=== PATIENT | male | born 1980 | race Caucasian/White ===

== ENCOUNTER 2016-09-05 12:25 | Emergency (ER) | payer SELFPAY ==
[2016-09-05 14:19] LABS: Basophils % (Auto) 0.5 % (0.0-1.8); Eosinophils % (Auto) 1.9 % (0.0-4.3); Hematocrit 46.5 % (35.5-45.6); Hemoglobin 15.8 gm/dl (11.8-15.2); Mean Corpuscular HGB Conc 34 % (32-34); Mean Corpuscular Hemoglobin 28 pg (28-32); Mean Corpuscular Volume 83 fl (84-94); Platelet Count 284 K/mm3 (140-440); Red Blood Count 5.58 M/mm3 (3.65-5.03); Red Cell Distribution Width 13.2 % (13.2-15.2); White Blood Count 9.8 K/mm3 (4.5-11.0)
[2016-09-05 14:40] LABS: Alanine Aminotransferase 24 units/L (7-56); Albumin 4.4 g/dL (3.9-5); Albumin/Globulin Ratio 1.6 %; Alkaline Phosphatase 75 units/L (35-129); Anion Gap 19 mmol/L; Blood Urea Nitrogen 12 mg/dL (9-20); Calcium 9.1 mg/dL (8.4-10.2); Carbon Dioxide 25 mmol/L (22-30); Chloride 99.8 mmol/L (98-107); Glucose 98 mg/dL (75-100); Potassium 3.4 mmol/L (3.6-5.0); Sodium 140 mmol/L (137-145); Total Protein 7.2 g/dL (6.3-8.2); Uric Acid 8.6 mg/dL (3.5-7.6)
[2016-09-05 17:18] VITALS: BP 134/88
[2016-09-05] MEDS ORDERED: TORADOL ONE (19:10)
[2016-09-05] MEDS ORDERED: DELTASONE ONE (19:10)
[2016-09-05] MEDS ORDERED: DELTASONE PO ONE (19:12)
[2016-09-05] MEDS ORDERED: TORADOL IM ONE (19:12)
--- NOTE | 2016-09-05 19:14 | Emergency Department Report ---
ED Upper Extremity Inj HPI - General Chief Complaint: Extremity Injury, Upper Stated Complaint: RT SIDE PAIN/NUMBNESS Time Seen by Provider: 09/05/16 19:12 Source: patient Mode of arrival: Ambulatory Limitations: No Limitations - History of Present Illness Initial Comments: Patient presents with 2 weeks of worsening right hand and arm pain. Complains of tingling and weakness today. 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 No other focal neurological complaints MD Complaint: Injury to:: right, wrist, hand -: Gradual Other Extremity Injury: Hand: Right - Related Data Previous Rx's Medication Instructions Recorded Last Taken Type Ibuprofen [Motrin 600 MG tab] 600 mg PO Q8H PRN #30 tablet 09/05/16 Unknown Rx predniSONE [Deltasone] 40 mg PO QDAY #6 tab 09/05/16 Unknown Rx Allergies Allergy/AdvReac Type Severity Reaction Status Date / Time No Known Allergies Allergy Verified 09/05/16 19:13 ED Review of Systems ROS: Stated complaint: RT SIDE PAIN/NUMBNESS Other details as noted in HPI ED Past Medical Hx - Medications Home Medications: Home Medications Medication Instructions Recorded Confirmed Last Taken Type Ibuprofen [Motrin 600 MG tab] 600 mg PO Q8H PRN #30 tablet 09/05/16 Unknown Rx predniSONE [Deltasone] 40 mg PO QDAY #6 tab 09/05/16 Unknown Rx ED Physical Exam - General Limitations: No Limitations ED Course Vital Signs 09/05/16 09/05/16 13:53 17:17 Temperature 98.6 F 98.5 F Pulse Rate 90 83 Respiratory 16 18 Rate Blood Pressure 134/95 Blood Pressure 134/88 [Left] O2 Sat by Pulse 100 99 Oximetry ED Medical Decision Making - Lab Data Result diagrams: 09/05/16 14:07 09/05/16 14:07 - Medical Decision Making Patient is a 36-year-old male medical problems here with right arm pain and swelling. He has been using vibrating mechanical falls for the past several years and now has pain with movement of his right wrist and elbow. Ultrasound of his wrist with negative labs are unremarkable. My suspicion is that this is carpal tunnel syndrome or a likely overuse injury. Plan to treat with NSAIDs and steroids and rest. Normal neurological exam. Portions of this chart were dictated with dictation software. There may be dictation errors contained within this note. Critical care attestation.: If time is entered above; I have spent that time in minutes in the direct care of this critically ill patient, excluding procedure time. ED Disposition Clinical Impression: Carpal tunnel syndrome of right wrist, Arm pain Disposition: TO HOME OR SELFCARE Is pt being admited?: No Does the pt Need Aspirin: No Condition: Stable Instructions: Carpal Tunnel Syndrome (ED) Prescriptions: Ibuprofen [Motrin 600 MG tab] 600 mg PO Q8H PRN #30 tablet PRN Reason: Pain predniSONE [Deltasone] 40 mg PO QDAY #6 tab Forms: Work/School Release Form(ED)
[2016-09-05] MEDS ORDERED: TRIDIL DRIP 50MG/250ML 50 MG/250 ML BOTTLE IV ONE (19:15)
--- NOTE | 2016-09-06 12:13 | Vascular Lab Report ---
RIGHT UPPER EXTREMITY VENOUS DUPLEX: REASON FOR EXAM: Pain and swelling of the right upper extremity COMMENTS ON THE RIGHT: All arm veins visualized are freely compressible without evidence of internal echogenicity. The subclavian and internal jugular veins are free of thrombus. Flow is spontaneous and phasic throughout. COMMENTS ON THE LEFT: The subclavian and internal jugular veins are free of thrombus. IMPRESSION: No evidence of acute or chronic deep venous thrombosis in the right upper extremity.
== END 2016-09-05 19:15 | disposition home or self-care (01) ==
LOC: ED 12:25
DX: G56.01 Carpal tunnel syndrome, right upper limb (principal)
CPT/HCPCS: 36415; 80053; 83690; 84550; 85025; 93971; 96372; 99284; J1885; J7512